=== PATIENT | female | born 1995 | race Hispanic/Latino ===

== ENCOUNTER 2017-12-28 21:14 | Emergency (ER) | payer OTHER ==
[2017-12-28 21:22] VITALS: RESP 18
[2017-12-28] MEDS ORDERED: DiphenhydrAMINE 50 mg/ml Inj IVP STA (21:29)
[2017-12-28] MEDS ORDERED: Sodium Chloride 0.9% 1,000 ML IV STA (21:30)
[2017-12-28] MEDS ORDERED: DiphenhydrAMINE 50 mg/ml Inj ONE (21:34)
--- NOTE | 2017-12-28 21:51 | ED PDOC ---
HPI: Allergic Reaction Time Seen by Provider: 12/28/17 21:27 Chief Complaint (Nursing): Allergic Reaction Chief Complaint (Provider): Allergic reaction History Per: Patient History/Exam Limitations: no limitations Onset/Duration Of Symptoms: Mins Current Symptoms Are (Timing): Still Present Context: Food Possible Cause: Food Associated Symptoms: Skin Rash, Itching Home/EMS Treatment: None Additional History Per: Patient Additional Complaint(s): 22yo female, history of coconut and nut allergy, come to ER for evaluation after exposure to nuts. Patient state 1 hour ago, she was having a friend's salad which contained nuts and subsequently broke out in itchy hives all over her body. She denies any shortness of breath or throat closing sensation. No other complaints. PMD: None provided Past Medical History Reviewed: Historical Data, Nursing Documentation, Vital Signs Vital Signs: Last Vital Signs Temp 97.8 F 12/28/17 21:16 Pulse 115 H 12/28/17 21:16 Resp 18 12/28/17 21:16 BP 106/65 12/28/17 21:16 Pulse Ox 94 L 12/28/17 21:16 - Medical History PMH: No Chronic Diseases - Surgical History Surgical History: No Surg Hx - Family History Family History: States: No Known Family Hx - Home Medications Home Medications: Ambulatory Orders Medication Instructions Recorded Epinephrine [Epipen] 0.3 mg IJ PRN PRN #2 auto.injct 12/28/17 - Allergies Allergies/Adverse Reactions: Allergies Allergy/AdvReac Type Severity Reaction Status Date / Time coconut Allergy SWELLING Verified 12/28/17 21:19 nut - unspecified Allergy SWELLING Verified 12/28/17 21:19 Review of Systems ROS Statement: Except As Marked, All Systems Reviewed And Found Negative ENT: Negative for: Mouth Swelling, Throat Swelling Respiratory: Negative for: Shortness of Breath Skin: Positive for: Rash Physical Exam - Reviewed Nursing Documentation Reviewed: Yes Vital Signs Reviewed: Yes - Physical Exam Appears: Positive for: Non-toxic Head Exam: Positive for: ATRAUMATIC, NORMAL INSPECTION, NORMOCEPHALIC Skin: Positive for: Warm, Dry, Rash (diffuse erythematous, blanching, urticarial rash noted to body) Eye Exam: Positive for: Normal appearance ENT: Positive for: Normal ENT Inspection (uvula midline, no edema noted.) Neck: Positive for: Supple Cardiovascular/Chest: Positive for: Regular Rate, Rhythm Respiratory: Positive for: Normal Breath Sounds. Negative for: Wheezing Gastrointestinal/Abdominal: Positive for: Normal Exam, Soft. Negative for: Tenderness Back: Positive for: Normal Inspection Extremity: Positive for: Normal ROM Neurologic/Psych: Positive for: Alert, Oriented - ECG O2 Sat by Pulse Oximetry: 94 Disposition - Clinical Impression Clinical Impression: Allergic reaction - Disposition Referrals: [facility] [Provider Group] Disposition: Routine/Home Disposition Time: 23:00 Condition: IMPROVED Prescriptions: Epinephrine [Epipen] 0.3 mg IJ PRN PRN #2 auto.injct PRN Reason: Anaphylaxis Instructions: Food Allergy, Hives (DC) Forms: [employer] (Welsh) Medical Decision Making Medical Decision Making: Assessment: 22yo female with history of nut allergy presents for evaluation of allergic reaction Patient's ABC's intact. No concern for impending airway compromise Plan: * Benadryl 50mg IVP * Pepcid 20mg IVP * Solumedrol 125mg IVP * IV Fluids 1L 1000PM Improving, patient's rash is dissipating 1100PM Patient significantly improved. Advised to keep epi-pen with her at all times. Return precautions discussed. Scribe Attestation: Documented by Myra Wakefield, acting as a scribe for Richie Melgar MD. Provider Scribe Attestation: All medical record entries made by the Scribe were at my direction and personally dictated by me. I have reviewed the chart and agree that the record accurately reflects my personal performance of the history, physical exam, medical decision making, and the department course for this patient. I have also personally directed, reviewed, and agree with the discharge instructions and disposition.
[2017-12-28 23:27] VITALS: BP 114/73; PULSE 85; TEMP 98.3; O2SAT 100
== END 2017-12-28 23:34 | disposition home or self-care (01) ==
LOC: H.ER 21:14
DX: T78.40XA Allergy, unspecified, initial encounter (principal); Z91.018 Allergy to other foods
CPT/HCPCS: 96374; 96375; 99284; J1200; J2930; J7030